=== PATIENT | male | born 1975 | race Caucasian/White ===

== ENCOUNTER 2018-11-04 16:18 | Emergency (ER) | payer OTHER ==
[2018-11-04] MEDS: ACETAMINOPHEN 500 MG TAB PO (16:48)
[2018-11-04] MEDS: DIPHTH/TET/ACEL PERTUSS (ADULT) 0.5 ML VIAL IM* (16:49)
[2018-11-04] MEDS: CEFTRIAXONE 1 GM INJ IM (16:53)
== END 2018-11-04 20:54 | disposition home or self-care (01) ==
LOC: FTE 16:18
DX: S61.412A Laceration without foreign body of left hand, initial encounter (principal); W31.2XXA Contact with powered woodworking and forming machines, initial encounter; Y92.89 Other specified places as the place of occurrence of the external cause; Z23 Encounter for immunization
CPT/HCPCS: 12002; 73130-LT; 90471; 90715; 96372; 99284-25

== ENCOUNTER 2018-11-07 13:50 | Emergency (ER) | payer OTHER ==
[2018-11-07] MEDS: BACITRACIN 0.9 GM OINT TOP (16:44)
== END 2018-11-07 16:49 | disposition home or self-care (01) ==
LOC: FTE 16:49
DX: Z48.01 Encounter for change or removal of surgical wound dressing (principal)
CPT/HCPCS: 99282; Z7610